=== PATIENT | male | born 1960 | race Two or more races ===

== ENCOUNTER 2020-08-27 20:12 | Inpatient (IN) | payer BC, OTHER ==
[~2020-08-27] VITALS: Ht 167.6 cm; Wt 103.8 kg
[2020-08-27 22:06] LABS: Basophils # (auto) 0 10 ^3/uL (0-0.2); Basophils % (auto) 0.2 % (0.0-2.0); Eosinophils # (auto) 0.1 10 ^3/uL (0-0.8); Eosinophils % (auto) 0.4 % (0.0-7.0); Hematocrit 44.2 % (41.0-53.0); Hemoglobin 15.2 g/dL (13.5-17.5); Lymphocytes # (auto) 1.8 10 ^3/uL (0.4-5.4); Lymphocytes % (auto) 12.5 % (10.0-50.0); Mean Corpuscular Hemoglobin 30.3 pg (28.0-32.0); Mean Corpuscular Hgb Conc. 34.4 g/dL (32.0-36.0); Mean Corpuscular Volume 88.2 fL (80.0-100.0); Monocytes # (auto) 1.2 10 ^3/uL (0-1.3); Monocytes % (auto) 8.6 % (0.0-12.0); Neutrophils # (auto) 11.1 10 ^3/uL (1.6-8.6); Neutrophils % (auto) 78.3 % (37.0-80.0); Nucleated Red Blood Cells % 0.1 %; Platelet Count (auto) 209 10^3/uL (140-450); Red Blood Cells 5.01 10^6/uL (4.5-5.90); Red Cell Distribution Width 13.6 % (11.8-14.3); White Blood Cell 14.2 10^3/uL (4.4-10.8)
[2020-08-27 22:25] LABS: Chloride 103 mmol/L (98-107); Potassium 3.3 mmol/L (3.5-5.1); Sodium 136 mmol/L (136-145)
[2020-08-27 22:35] LABS: Alanine Aminotransferase 23 U/L (16-61); Albumin 3.4 g/dL (3.4-5.0); Alkaline Phosphatase 88 U/L (45-117); Anion Gap 6 (5-15); Aspartate Aminotransferase 10 U/L (15-37); BUN/Creatinine Ratio 10.5; Blood Urea Nitrogen 9 mg/dL (7-18); Calcium 8.5 mg/dL (8.5-10.1); Carbon Dioxide 27 mmol/L (21-32); GFR African American 117 mL/min; GFR Non-African American 96 mL/min; Glucose 192 mg/dL (74-106); Total Protein 7.1 g/dL (6.4-8.2)
[2020-08-28 06:16] LABS: Urine Bacteria NONE SEEN /hpf (None Seen); Urine Blood Negative /uL (Negative); Urine Specific Gravity 1.006 (1.001-1.035); Urine WBC 1 /hpf (0 - 3)
[2020-08-28] MEDS ORDERED: IOHEXOL 300 MG/ML 100ML BOTTLE IJ ONE (06:32)
[2020-08-28] MEDS ORDERED: metroNIDAZOLE 500MG/100ML 100 ML IV ONE (10:15)
[2020-08-28] MEDS ORDERED: cefTRIAXone 1GM/50ML D5W 50 ML IV ONE (10:15)
[2020-08-28] MEDS ORDERED: SODIUM CHLORIDE 0.9% 1,000 ML IV ONE ×2 (10:15)
[2020-08-28] MEDS ORDERED: POTASSIUM CHL 20MEQ/100ML 100 ML IV ONE (10:15)
[2020-08-28] MEDS ORDERED: TEMAZEPAM 15 MG CAP PO PRN (10:30)
[2020-08-28] MEDS ORDERED: DEXTROSE (50%) 50ML SYRG IV PRN (10:30)
[2020-08-28] MEDS ORDERED: traMADol HCL 50 MG TAB PO PRN (10:30)
[2020-08-28] MEDS ORDERED: MORPHINE SULF INJ 2 MG/ML SYRINGE 1ML IV PRN (10:30)
[2020-08-28] MEDS ORDERED: PROMETHAZINE HCL 25 MG/ML 1ML IV PRN (10:30)
[2020-08-28] MEDS: SOD CHL 0.9%/ KCL 40MEQ 1,000 ML IV SCH ×2 (11:15→22:15)
[2020-08-28] MEDS: FAMOTIDINE (10MG/ML) 2ML VL IV SCH ×2 (11:20→21:06)
[2020-08-28] MEDS: InsuLIN REG 1unit/0.01ml Soln (100units/ml) SC SCH ×3 (12:35→21:54)
[2020-08-28] MEDS: ACCU-CHEK COMFORT CURVE STRIP VI SCH ×3 (12:35→21:55)
[2020-08-28] MEDS: POTASSIUM CHL 20MEQ/100ML 100 ML IV SCH ×3 (14:40→17:32)
[2020-08-28 17:00] VITALS: BP 134/87
[2020-08-28] MEDS: metroNIDAZOLE 500MG/100ML 100 ML IV SCH (17:42)
[2020-08-28] MEDS: ACETAMINOPHEN 500 MG TAB PO PRN (17:49)
[2020-08-28 22:00] VITALS: BP 108/64
[2020-08-28] MEDS ORDERED: POTASSIUM CHL 20MEQ/100ML 100 ML IV SCH (22:00)
[2020-08-29] MEDS: metroNIDAZOLE 500MG/100ML 100 ML IV SCH ×3 (01:56→18:27)
[2020-08-29] MEDS: ACETAMINOPHEN 500 MG TAB PO PRN (02:16)
[2020-08-29 05:00] VITALS: BP 134/78
[2020-08-29] MEDS: SOD CHL 0.9%/ KCL 40MEQ 1,000 ML IV SCH ×2 (06:19→16:51)
[2020-08-29] MEDS: ACCU-CHEK COMFORT CURVE STRIP VI SCH ×4 (06:20→22:00)
[2020-08-29] MEDS: InsuLIN REG 1unit/0.01ml Soln (100units/ml) SC SCH ×4 (06:21→22:00)
[2020-08-29 06:56] LABS: Basophils # (auto) 0 10 ^3/uL (0-0.2); Basophils % (auto) 0.5 % (0.0-2.0); Eosinophils # (auto) 0.1 10 ^3/uL (0-0.8); Eosinophils % (auto) 2.4 % (0.0-7.0); Hematocrit 41.5 % (41.0-53.0); Hemoglobin 13.8 g/dL (13.5-17.5); Lymphocytes # (auto) 1.3 10 ^3/uL (0.4-5.4); Lymphocytes % (auto) 21.3 % (10.0-50.0); Mean Corpuscular Hemoglobin 29.6 pg (28.0-32.0); Mean Corpuscular Hgb Conc. 33.3 g/dL (32.0-36.0); Mean Corpuscular Volume 88.9 fL (80.0-100.0); Monocytes # (auto) 0.6 10 ^3/uL (0-1.3); Neutrophils # (auto) 4.1 10 ^3/uL (1.6-8.6); Neutrophils % (auto) 66.8 % (37.0-80.0); Platelet Count (auto) 195 10^3/uL (140-450); Red Blood Cells 4.67 10^6/uL (4.5-5.90); Red Cell Distribution Width 13.7 % (11.8-14.3); White Blood Cell 6.2 10^3/uL (4.4-10.8)
[2020-08-29 07:13] LABS: Albumin 2.7 g/dL (3.4-5.0)
[2020-08-29 07:15] LABS: BUN/Creatinine Ratio 8.1
[2020-08-29 07:18] LABS: Bilirubin, Total 0.6 mg/dL (0.2-1.0); Total Protein 6.1 g/dL (6.4-8.2)
[2020-08-29 09:00] VITALS: BP 123/89
[2020-08-29] MEDS: cefTRIAXone 1GM/50ML D5W 50 ML IV SCH (09:44)
[2020-08-29] MEDS: FAMOTIDINE (10MG/ML) 2ML VL IV SCH ×2 (09:45→22:30)
[2020-08-29] MEDS ORDERED: ENOXAPARIN SOD 40 MG/0.4 ML SYRINGE SC SCH (10:00)
[2020-08-29 13:00] VITALS: BP 116/80
[2020-08-29 17:00] VITALS: BP 146/92
[2020-08-29 20:00] VITALS: BP 158/90
[2020-08-29 22:00] VITALS: BP 158/90
[2020-08-30] MEDS: ACETAMINOPHEN 500 MG TAB PO PRN ×3 (01:20→22:15)
[2020-08-30] MEDS: metroNIDAZOLE 500MG/100ML 100 ML IV SCH ×3 (02:22→17:33)
[2020-08-30] MEDS: SOD CHL 0.9%/ KCL 40MEQ 1,000 ML IV SCH ×3 (02:22→22:30)
[2020-08-30 05:00] VITALS: BP 132/55
[2020-08-30 05:48] LABS: Basophils # (auto) 0 10 ^3/uL (0-0.2); Basophils % (auto) 0.7 % (0.0-2.0); Eosinophils # (auto) 0.2 10 ^3/uL (0-0.8); Eosinophils % (auto) 2.6 % (0.0-7.0); Hemoglobin 14.8 g/dL (13.5-17.5); Lymphocytes # (auto) 1.4 10 ^3/uL (0.4-5.4); Mean Corpuscular Hgb Conc. 35.1 g/dL (32.0-36.0); Mean Corpuscular Volume 88.2 fL (80.0-100.0); Monocytes # (auto) 0.6 10 ^3/uL (0-1.3); Neutrophils # (auto) 3.6 10 ^3/uL (1.6-8.6); Neutrophils % (auto) 62.7 % (37.0-80.0); Platelet Count (auto) 212 10^3/uL (140-450); Red Blood Cells 4.76 10^6/uL (4.5-5.90); Red Cell Distribution Width 13.6 % (11.8-14.3); White Blood Cell 5.8 10^3/uL (4.4-10.8)
[2020-08-30 06:06] LABS: Partial Thromboplastin Time 32.2 sec (23.0-31.2)
[2020-08-30 06:11] LABS: BUN/Creatinine Ratio 9.1; Calcium 8.1 mg/dL (8.5-10.1)
[2020-08-30] MEDS: ACCU-CHEK COMFORT CURVE STRIP VI SCH ×4 (06:32→22:00)
[2020-08-30] MEDS: InsuLIN REG 1unit/0.01ml Soln (100units/ml) SC SCH ×4 (06:32→22:00)
[2020-08-30 09:00] VITALS: BP 124/63
[2020-08-30] MEDS: cefTRIAXone 1GM/50ML D5W 50 ML IV SCH (10:26)
[2020-08-30] MEDS: FAMOTIDINE (10MG/ML) 2ML VL IV SCH ×2 (12:20→22:30)
[2020-08-30 13:15] VITALS: BP 156/74
[2020-08-30 16:42] VITALS: BP 147/83
[2020-08-30 20:00] VITALS: BP 145/81
[2020-08-30 22:00] VITALS: BP 148/81
[2020-08-31] MEDS: metroNIDAZOLE 500MG/100ML 100 ML IV SCH ×2 (02:00→10:07)
[2020-08-31 05:00] VITALS: BP 123/91
[2020-08-31] MEDS: InsuLIN REG 1unit/0.01ml Soln (100units/ml) SC SCH ×2 (06:26→12:00)
[2020-08-31] MEDS: ACCU-CHEK COMFORT CURVE STRIP VI SCH ×2 (06:27→11:30)
[2020-08-31 08:00] VITALS: BP 131/80
[2020-08-31 09:00] VITALS: BP 131/80
[2020-08-31] MEDS: cefTRIAXone 1GM/50ML D5W 50 ML IV SCH (10:07)
[2020-08-31] MEDS: FAMOTIDINE (10MG/ML) 2ML VL IV SCH (10:07)
[2020-08-31 12:06] VITALS: BP 180/97
[2020-08-31 13:00] VITALS: BP 139/86
== END 2020-08-31 13:40 | disposition home or self-care (01) | DRG 872 ==
LOC: ER 20:16 → OVERFLOW 08-28 10:28 → CENTRAL 08-28 16:11
PROVIDERS: ADMIT Internal Medicine; ATTEND Internal Medicine
DX: A41.9 Sepsis, unspecified organism (principal); K57.32 Diverticulitis of large intestine without perforation or abscess without bleeding; E11.9 Type 2 diabetes mellitus without complications; K76.0 Fatty (change of) liver, not elsewhere classified; E66.01 Morbid (severe) obesity due to excess calories; Z20.822 Contact with and (suspected) exposure to COVID-19; N20.0 Calculus of kidney; Z83.3 Family history of diabetes mellitus; Z68.36 Body mass index [BMI] 36.0-36.9, adult; Z87.442 Personal history of urinary calculi
CPT/HCPCS: 36415; 74177; 80048; 80053; 81001; 82962; 83036; 83605; 84484; 85025; 85610; 85730; 87040; 87426; 93005; 96361; 96365; 96367; G0378; J0696; J1815; J3480; J3490

== ENCOUNTER 2023-06-02 18:12 | Emergency (ER) | payer BC ==
[~2023-06-02] VITALS: Ht 167.6 cm; Wt 103.4 kg
[2023-06-02] MEDS ORDERED: ACE3T PO (20:52)
[2023-06-02] MEDS ORDERED: IBUP-1455 PO (20:52)
[2023-06-02 21:31] VITALS: BP 138/73; TEMP 97.8
[2023-06-02] MEDS: HYDROcodone-ACET 10/325MG TAB PO ONE (21:31)
[2023-06-02 21:32] VITALS: PULSE 73; RESP 16; O2SAT 99
== END 2023-06-02 21:38 | disposition home or self-care (01) ==
LOC: ER 18:12
DX: S20.212A Contusion of left front wall of thorax, initial encounter (principal); E11.9 Type 2 diabetes mellitus without complications; E66.01 Morbid (severe) obesity due to excess calories; Z68.36 Body mass index [BMI] 36.0-36.9, adult; W01.0XXA Fall on same level from slipping, tripping and stumbling without subsequent striking against object, initial encounter; Y93.89 Activity, other specified; Y92.098 Other place in other non-institutional residence as the place of occurrence of the external cause; Y99.8 Other external cause status
CPT/HCPCS: 71046